=== PATIENT | female | born 1985 | race African-American/Black ===

== ENCOUNTER 2020-03-15 21:06 | Emergency (ER) | payer OTHER ==
[~2020-03-15] VITALS: Ht 170.2 cm; Wt 107.0 kg
[2020-03-15] MEDS ORDERED: FentaNYL CITRATE-PF 100 MCG/2 ML VIAL IVP ONE (21:15)
[2020-03-15] MEDS ORDERED: ONDANSETRON HCL 4 MG/2 ML VIAL IVP ONE (21:15)
[2020-03-15] MEDS ORDERED: PERTUSS(ACELL),DIPH,TET VAC/PF 0.5 ML VIAL IM ONE (21:15)
[2020-03-15] MEDS ORDERED: SODIUM CHLORIDE 0.9% 1,000 ML IV ONE (21:15)
[2020-03-15] MEDS ORDERED: CeFAZolin 1 GM/DEXTROSE 50 ML IV ONE (21:30)
[2020-03-15] MEDS ORDERED: BACITRACIN 0.9 GM PACKET OINTMENT TP ONE (22:30)
[2020-03-16 00:40] VITALS: BP 110/68
== END 2020-03-16 00:30 | disposition home or self-care (01) ==
LOC: EDBD 21:08 → EMS 21:08
DX: S92.322A Displaced fracture of second metatarsal bone, left foot, initial encounter for closed fracture (principal); S91.332A Puncture wound without foreign body, left foot, initial encounter; E11.9 Type 2 diabetes mellitus without complications; F17.210 Nicotine dependence, cigarettes, uncomplicated; W34.00XA Accidental discharge from unspecified firearms or gun, initial encounter; Y93.89 Activity, other specified; Y92.89 Other specified places as the place of occurrence of the external cause; Y99.8 Other external cause status
CPT/HCPCS: 73620; 90471; 90715; 96365; 96375; 99284; J0690; J2405; J3010; J7030